=== PATIENT | female | born 1990 | race Caucasian/White ===

== ENCOUNTER 2017-08-11 14:03 | Emergency (ER) | payer SELFPAY ==
[2017-08-11] MEDS ORDERED: ALBUTEROL SULFATE 0.083% NEB 2.5 MG/3 ML AMPUL NEB ONE (14:19)
[2017-08-11] MEDS ORDERED: NORMAL SALINE 1000 ML 1,000 ML IV ONE (14:19)
[2017-08-11] MEDS ORDERED: METHYLPREDNISOLONE INJ 125 MG/2 ML SDV IV ONE (14:19)
--- NOTE | 2017-08-11 14:22 | ER Document Report ---
ED Medical Screen (RME) - General Chief Complaint: Breathing Difficulty Stated Complaint: BREATHING DIFFICULTY Time Seen by Provider: 08/11/17 14:16 Notes: 27-year-old female complaining of extreme shortness of breath starting this morning associated with chest tightness but no chest pain. Complains of productive cough but denies any fever. Denies any history of asthma or COPD although she does admit to smoking. States that she has had similar symptoms once before when she had the "bottom lobes of her lungs collapsed". Patient did not have to have surgery for this, was treated with steroids and oxygen at home. TRAVEL OUTSIDE OF THE [place] IN LAST 30 DAYS: No Past Medical History - General Information source: Patient - Social History Cigarette use (# per day): Yes Frequency of alcohol use: Rare Pulmonary Medical History: Reports: Hx Asthma Renal/ Medical History: Denies: Hx Peritoneal Dialysis Review of Systems - Review of Systems Respiratory: See HPI Physical Exam - Vital signs Vitals: Temp Pulse Resp Pulse Ox 98.6 F 111 H 28 H 91 L 08/11/17 14:09 08/11/17 14:09 08/11/17 14:09 08/11/17 14:09 Interpretation: Tachycardic, Hypoxic - Respiratory Respiratory status: Respiratory distress, Pursed lip breathing Chest status: Accessory muscle use, Prolonged expirations Breath sounds: Wheezing Course - Vital Signs Vital signs: Temp Pulse Resp BP Pulse Ox 98.6 F 111 H 28 H 91 L 08/11/17 14:09 08/11/17 14:09 08/11/17 14:09 08/11/17 14:09
[2017-08-11 14:50] LABS: ABSOLUTE BASOPHILS # (AUTO) 0.2 10^3/uL (0.0-0.2); ABSOLUTE EOSINOPHILS # (AUTO) 0.6 10^3/uL (0.0-0.6); ABSOLUTE LYMPHOCYTES (AUTO) 1.8 10^3/uL (0.5-4.7); ABSOLUTE MONOCYTES (AUTO) 0.5 10^3/uL (0.1-1.4); ABSOLUTE NEUT (AUTO) 11.5 10^3/uL (1.7-8.2); BASOPHILS % (AUTO) 1.2 % (0-2); EOSINOPHILS % (AUTO) 3.9 % (0-6); HEMATOCRIT 39.8 % (36.0-47.0); HEMOGLOBIN 13.4 g/dL (12.0-15.5); HGB HCT DIFFERENCE 0.4; LYMPHOCYTES % (AUTO) 12.3 % (13-45); MEAN CORPUSCULAR HEMOGLOBIN 26.7 pg (27.0-33.4); MEAN CORPUSCULAR HGB CONC 33.8 g/dL (32.0-36.0); MEAN CORPUSCULAR VOLUME 79 fl (80-97); MONOCYTES % (AUTO) 3.8 % (3-13); RED BLOOD COUNT 5.02 10^6/uL (3.72-5.28); RED CELL DISTRIBUTION WIDTH 16.1 % (11.5-14.0); SEGMENTED NEUTROPHILS % (AUTO) 78.8 % (42-78); WHITE BLOOD COUNT 14.6 10^3/uL (4.0-10.5)
[2017-08-11 15:06] LABS: ALANINE AMINOTRANSFERASE 27 U/L (9-52); ALBUMIN 4.5 g/dL (3.5-5.0); ALKALINE PHOSPHATASE 82 U/L (38-126); ANION GAP 13 (5-19); ASPARTATE AMINO TRANSFERASE 18 U/L (14-36); BILIRUBIN,DIRECT 0.4 mg/dL (0.0-0.4); BILIRUBIN,TOTAL 0.6 mg/dL (0.2-1.3); BLOOD UREA NITROGEN 10 mg/dL (7-20); CALCIUM 9.9 mg/dL (8.4-10.2); CARBON DIOXIDE 24 mmol/L (22-30); CHLORIDE 106 mmol/L (98-107); CREATININE RESULT 0.72 mg/dL (0.52-1.25); GLUCOSE 101 mg/dL (75-110); POTASSIUM 4.5 mmol/L (3.6-5.0); TOTAL PROTEIN 7.4 g/dL (6.3-8.2)
--- NOTE | 2017-08-11 15:18 | RADIOLOGY REPORT (SQ) ---
EXAM DESCRIPTION: CHEST SINGLE VIEW COMPLETED DATE/TIME: 08/11/2017 3:04 pm REASON FOR STUDY: SOB, cough COMPARISON: None. EXAM PARAMETERS: NUMBER OF VIEWS: One view. TECHNIQUE: Single frontal radiographic view of the chest acquired. RADIATION DOSE: NA LIMITATIONS: Large patient, portable technique FINDINGS: LUNGS AND PLEURA: No opacities, masses or pneumothorax. No pleural effusion. MEDIASTINUM AND HILAR STRUCTURES: No masses. Contour normal. HEART AND VASCULAR STRUCTURES: No cardiomegaly. Normal vasculature. BONES: No acute findings. HARDWARE: None in the chest. OTHER: No other significant finding. IMPRESSION: NO ACUTE RADIOGRAPHIC FINDING IN THE CHEST. TECHNICAL DOCUMENTATION: JOB ID: [id number]
[2017-08-11] MEDS ORDERED: IPRATROPIUM/ALBUTEROL 0.5-2.5 MG/3 ML AMPUL NEB ONE (15:58)
[2017-08-11] MEDS ORDERED: PREDNISONE 20 MG TABLET PO ONE (16:26)
[2017-08-11] MEDS ORDERED: ALBUTEROL SULFATE HFA (90 MCG/PUFF) 8 GM MDI (1 MDI/ER DISP) IH ONE (16:28)
[2017-08-11 16:50] VITALS: BP 120/83
--- NOTE | 2017-08-11 16:50 | ER Document Report ---
ED General - General Chief Complaint: Breathing Difficulty Stated Complaint: BREATHING DIFFICULTY Time Seen by Provider: 08/11/17 14:16 TRAVEL OUTSIDE OF THE [place] IN LAST 30 DAYS: No - HPI Patient complains to provider of: Short of breath Notes: Patient coming in for acute shortness of breath. Patient states happened before with collapsed lung sent home with steroids and oxygen. Patient states does not have any surgery patient does admit to smoking having cold-like symptoms cough runny nose. Patient denies any recent travel denies any hormone replacement patient denies fever chills nausea vomiting. Patient is resting comfortably upon my evaluation already received a nebulizer treatment stating that she feels much better. - Related Data Allergies/Adverse Reactions: No Known Allergies Allergy (Unverified 08/11/17 14:21) Past Medical History - General Information source: Patient - Social History Smoking Status: Current Every Day Smoker Cigarette use (# per day): Yes Frequency of alcohol use: Rare Family History: Reviewed & Not Pertinent Pulmonary Medical History: Reports: Hx Asthma Renal/ Medical History: Denies: Hx Peritoneal Dialysis Review of Systems - Review of Systems Constitutional: No symptoms reported EENT: No symptoms reported Cardiovascular: No symptoms reported Respiratory: Short of breath Gastrointestinal: No symptoms reported Genitourinary: No symptoms reported Female Genitourinary: No symptoms reported Musculoskeletal: No symptoms reported Skin: No symptoms reported Hematologic/Lymphatic: No symptoms reported Neurological/Psychological: No symptoms reported Physical Exam - Vital signs Vitals: Temp Pulse Resp Pulse Ox 98.6 F 111 H 28 H 91 L 08/11/17 14:09 08/11/17 14:09 08/11/17 14:09 08/11/17 14:09 Interpretation: Normal - General General appearance: Appears well, Alert - HEENT Head: Normocephalic, Atraumatic Eyes: Normal Pupils: PERRL - Respiratory Respiratory status: No respiratory distress Chest status: Nontender Breath sounds: Wheezing Chest palpation: Normal - Cardiovascular Rhythm: Regular Heart sounds: Normal auscultation Murmur: No - Abdominal Inspection: Normal Distension: No distension Bowel sounds: Normal Tenderness: Nontender Organomegaly: No organomegaly - Back Back: Normal, Nontender - Extremities General upper extremity: Normal inspection, Nontender, Normal color, Normal ROM , Normal temperature General lower extremity: Normal inspection, Nontender, Normal color, Normal ROM , Normal temperature, Normal weight bearing. No: Michael's sign - Neurological Neuro grossly intact: Yes Cognition: Normal Orientation: AAOx4 [place] Coma Scale Eye Opening: Spontaneous Iglesia Coma Scale Verbal: Oriented Iglesia Coma Scale Motor: Obeys Commands Iglesia Coma Scale Total: 15 Speech: Normal Motor strength normal: LUE, RUE, LLE, RLE Sensory: Normal - Psychological Associated symptoms: Normal affect, Normal mood - Skin Skin Temperature: Warm Skin Moisture: Dry Skin Color: Normal Course - Re-evaluation Re-evalutation: 08/11/17 18:32 Reexaminations showed resolution of wheezing. Patient was given prednisone. Laboratory studies x-ray does not show any critical findings. Patient will be discharged on follow-up primary care physicians. - Vital Signs Vital signs: Temp Pulse Resp BP Pulse Ox 98.6 F 111 H 21 H 120/83 92 08/11/17 14:09 08/11/17 14:09 08/11/17 16:36 08/11/17 16:36 08/11/17 16:36 - Laboratory Result Diagrams: 08/11/17 14:34 08/11/17 14:34 Laboratory results interpreted by me: 08/11/17 14:34 WBC 14.6 H MCV 79 L MCH 26.7 L RDW 16.1 H Seg Neutrophils % 78.8 H Lymphocytes % 12.3 L Absolute Neutrophils 11.5 H Discharge - Discharge Clinical Impression: Wheezing, Cigarette smoker Condition: Good Disposition: HOME, SELF-CARE Instructions: Bronchitis With Bronchospasm (Wheezing) ([facility]), Bronchodilators ( [facility]), Family Physicians / Practices, Stop Smoking ([facility]) Additional Instructions: Follow-up with your primary care physician. Return to the ER if symptoms worsen. Take medications as prescribed. Prescriptions: Prednisone [Deltasone] 60 mg PO DAILY #24 tablet Forms: Return to Work
== END 2017-08-11 16:53 | disposition home or self-care (01) ==
LOC: ER 14:03
DX: R06.2 Wheezing (principal); R06.02 Shortness of breath; F17.200 Nicotine dependence, unspecified, uncomplicated
CPT/HCPCS: 94640 ×2; 99285; 96361; 96374; 36415; 85025; 80053; 71010; J2930; J7512; J7030; J3490; J7620

== ENCOUNTER 2018-01-17 17:00 | Emergency (ER) | payer SELFPAY ==
[2018-01-17] MEDS ORDERED: ALBUTEROL SULFATE 0.083% NEB 2.5 MG/3 ML AMPUL NEB ONE (17:24)
[2018-01-17] MEDS ORDERED: IPRATROPIUM BROMIDE 0.02% NEB 0.5 MG/2.5 ML AMPUL NEB ONE (17:25)
[2018-01-17] MEDS ORDERED: PREDNISONE 20 MG TABLET PO ONE ×2 (17:25→17:49)
--- NOTE | 2018-01-17 17:27 | ER Document Report ---
ED Medical Screen (RME) - General Chief Complaint: Breathing Difficulty Stated Complaint: SHORTNESS OF BREATH Time Seen by Provider: 01/17/18 17:11 Notes: Patient presents for shortness of breath and wheezing. Patient states that she has an albuterol puffer she uses and has had to use approximately 30 puffs today. In triage patient's O2 saturation is approximately 93% and she is mildly tachycardic. She has been having upper respiratory congestion for the last 5 days but no recent fevers or otherwise no other illnesses. She has audible wheezing and prolonged end expiratory breath sounds in triage. Hour- long DuoNeb and steroids ordered. I have greeted and performed a rapid initial assessment of this patient. A comprehensive ED assessment and evaluation of the patient, analysis of test results and completion of the medical decision making process will be conducted by additional ED providers. PHYSICAL EXAMINATION: GENERAL: Well-appearing, well-nourished and in no acute distress. HEAD: Atraumatic, normocephalic. EYES: Pupils equal round extraocular movements intact, conjunctiva are normal. ENT: Nares patent NECK: Normal range of motion LUNGS: Wheezing with prolonged expiratory breath sounds with no crackles Musculoskeletal: Normal range of motion NEUROLOGICAL: Normal speech, normal gait. PSYCH: Normal mood, normal affect. SKIN: Warm, Dry, normal turgor, no rashes or lesions noted. TRAVEL OUTSIDE OF THE [place] IN LAST 30 DAYS: No - Related Data Allergies/Adverse Reactions: No Known Allergies Allergy (Verified 01/17/18 17:01) Past Medical History Pulmonary Medical History: Reports: Hx Asthma Renal/ Medical History: Denies: Hx Peritoneal Dialysis Physical Exam - Vital signs Vitals: Temp Pulse Resp BP Pulse Ox 97.7 F 108 H 22 H 155/94 H 93 01/17/18 17:04 01/17/18 17:04 01/17/18 17:04 01/17/18 17:04 01/17/18 17:04 Course - Vital Signs Vital signs: Temp Pulse Resp BP Pulse Ox 97.7 F 108 H 22 H 155/94 H 93 01/17/18 17:04 01/17/18 17:04 01/17/18 17:04 01/17/18 17:04 01/17/18 17:04
--- NOTE | 2018-01-17 19:18 | ER Document Report ---
ED General - General Chief Complaint: Breathing Difficulty Stated Complaint: SHORTNESS OF BREATH Time Seen by Provider: 01/17/18 17:11 Notes: Patient is a 27-year-old female with a past history of recurrent bronchospasms who presents with the same. Patient reports that she has had a viral upper respiratory infection over the past several days and that over the last 24 hours she has had progressively worsening shortness of breath, wheezing and cough. She states this feels very similar to the 2 prior occasions in which she has been diagnosed as having severe bronchospasms on one such occasion she required hospitalization with supplemental oxygen at time of discharge. She has never followed up with pulmonology for formal pulmonary function testings or further evaluation of the cause of this recurrent illness. She states that she has tried an inhaler at home without any improvement of her symptoms. Exertion seems to worsen her shortness of breath. She denies any hemoptysis, syncope, abdominal pain, nausea, vomiting or fever. She denies any pleuritic pain. No history of DVT or pulmonary embolus. TRAVEL OUTSIDE OF THE [place] IN LAST 30 DAYS: No - Related Data Allergies/Adverse Reactions: No Known Allergies Allergy (Verified 01/17/18 17:01) Past Medical History - General Information source: Patient - Social History Smoking Status: Former Smoker Frequency of alcohol use: None Drug Abuse: None Lives with: Family Family History: Reviewed & Not Pertinent Patient has suicidal ideation: No Patient has homicidal ideation: No Pulmonary Medical History: Reports: Hx Asthma Renal/ Medical History: Denies: Hx Peritoneal Dialysis Review of Systems - Review of Systems Notes: Constitutional: Negative for fever. HENT: Negative for sore throat. Eyes: Negative for visual changes. Cardiovascular: Negative for chest pain. Respiratory: Positive for shortness of breath. Gastrointestinal: Negative for abdominal pain, vomiting or diarrhea. Genitourinary: Negative for dysuria. Musculoskeletal: Negative for back pain. Skin: Negative for rash. Neurological: Negative for headaches, weakness or numbness. 10 point ROS negative except as marked above and in HPI. Physical Exam - Vital signs Vitals: Temp Pulse Resp BP Pulse Ox 97.7 F 108 H 22 H 155/94 H 93 01/17/18 17:04 01/17/18 17:04 01/17/18 17:04 01/17/18 17:04 01/17/18 17:04 Interpretation: Tachycardic, Tachypneic Notes: PHYSICAL EXAMINATION: GENERAL: Well-appearing, well-nourished and in no acute distress. HEAD: Atraumatic, normocephalic. EYES: Pupils equal round and reactive to light, extraocular movements intact, sclera anicteric, conjunctiva are normal. ENT: nares patent, oropharynx clear without exudates. Moist mucous membranes. NECK: Normal range of motion, supple without lymphadenopathy LUNGS: Mild tachypnea, mildly diminished air movement throughout, no wheezing or rhonchi. HEART: Regular tachycardia without murmurs ABDOMEN: Soft, nontender, normoactive bowel sounds. No guarding, no rebound. No masses appreciated. EXTREMITIES: Normal range of motion, no pitting or edema. No cyanosis. NEUROLOGICAL: No focal neurological deficits. Moves all extremities spontaneously and on command. PSYCH: Normal mood, normal affect. SKIN: Warm, Dry, normal turgor, no rashes or lesions noted. Course - Re-evaluation Re-evalutation: 01/17/18 19:15 Patient presents with 12 hours of worsening shortness of breath, chest tightness , and near syncope. Patient reports two prior episodes of the same but was told she did not have a formal diagnosis of asthma. On my assessment, patient has moderately tight air movement but no wheezing although she has already had several breathing treatments prior to my assessment. However, despite the lack of active wheezing the patient does persist with moderate tachypnea and borderline hypoxia resting between 93-92% and some degree of obvious labored breathing. Patient reports that she was hospitalized on one prior occasion for the same, had a CT of her chest which is normal, and eventually was discharged home on steroids as well as home oxygen therapy. Will proceed with labs, EKG, continuous cardiac monitoring, hold on additional breathing treatments at this time as the patient is markedly tachycardic and does not appear to have any ongoing wheezes and reassess the patient. 01/17/18 21:29 D-dimer is negative. Chest x-ray is read as clear. BNP and troponin are likewise normal. Patient has had marked improvement of her work of breathing currently saturating 96-97% on room air and in no distress. She remains moderately tachycardic which is anticipated given that she has received 20 mg of albuterol here in the emergency department. She overall states she feels markedly improved. I have encouraged her to follow-up with pulmonology and provided her referral to Dr. Ybarra. At this time will discharge with return precautions and follow-up recommendations. Verbal discharge instructions given a the bedside and opportunity for questions given. Medication warnings reviewed. Patient is in agreement with this plan and has verbalized understanding of return precautions and the need for primary care follow-up in the next 24-72 hours. - Vital Signs Vital signs: Temp Pulse Resp BP Pulse Ox 97.8 F 108 H 16 140/73 H 97 01/17/18 21:52 01/17/18 17:04 01/17/18 21:52 01/17/18 21:52 01/17/18 21:52 - Laboratory Result Diagrams: 01/17/18 19:55 01/17/18 19:55 Laboratory results interpreted by me: 01/17/18 01/17/18 19:55 19:55 WBC 16.5 H MCH 26.5 L RDW 15.3 H Seg Neutrophils % 89.1 H Lymphocytes % 6.9 L Monocytes % 2.6 L Absolute Neutrophils 14.7 H Carbon Dioxide 20 L Glucose 113 H - Diagnostic Test Radiology reviewed: Image reviewed, Reports reviewed Radiology results interpreted by me: 01/17/18 19:18 Chest x-ray: No acute infiltrate or pneumothorax - EKG Interpretation by Me Additional EKG results interpreted by me: 01/17/18 21:30 Sinus tachycardia. Rate 123. No ST elevations or depressions. QTC is 447. Discharge - Discharge Clinical Impression: Reactive airway disease that is not asthma, Shortness of breath, Tachycardia Condition: Good Disposition: HOME, SELF-CARE Additional Instructions: He was seen for shortness of breath today that appears to be some form of reactive airway disease. Your labs and chest x-ray do not suggest a blood clot in your lung, cardiac failure, pneumonia, or collapsed lung. Your symptoms improved with treatment here in the emergency department. However, it is very important that you return to the emergency department immediately if you began to have worsening difficulty breathing that does not respond to your normal home breathing treatments. You are also being sent home on a five-day course of steroids that you should start taking tomorrow. Please also follow closely with your primary care physician. you should also return to emergency department if you develop fever greater than 101, persistent cough, persistent vomiting, pass out, or any other symptoms that are concerning to you. Prescriptions: Albuterol Sulfate [Proair HFA Inhalation Aerosol 8.5 gm MDI] 2 puff IH Q4H PRN # 1 mdi PRN Reason: Prednisone [Deltasone 20 mg Tablet] 3 tab PO DAILY 5 Days tablet Referrals: MANINDER YBARRA MD [ACTIVE STAFF] - Follow up as needed
--- NOTE | 2018-01-17 19:51 | RADIOLOGY REPORT (SQ) ---
EXAM DESCRIPTION: CHEST SINGLE VIEW COMPLETED DATE/TIME: 01/17/2018 7:06 pm REASON FOR STUDY: sob COMPARISON: Chest x-ray 08/11/2017. EXAM PARAMETERS: NUMBER OF VIEWS: One view. TECHNIQUE: Single frontal radiographic view of the chest acquired. RADIATION DOSE: NA LIMITATIONS: None. FINDINGS: LUNGS AND PLEURA: No consolidation, pneumothorax or pleural effusion. MEDIASTINUM AND HILAR STRUCTURES: No masses. Contour normal. HEART AND VASCULAR STRUCTURES: Heart normal in size. Normal vasculature. BONES: No acute findings. HARDWARE: None in the chest. IMPRESSION: No acute radiographic finding in the chest. TECHNICAL DOCUMENTATION: JOB ID: [id number] 2010 [employer]- All Rights Reserved Reading location - IP/workstation name: [email or web address]
[2018-01-17 20:06] LABS: ABSOLUTE BASOPHILS # (AUTO) 0.1 10^3/uL (0.0-0.2); ABSOLUTE EOSINOPHILS # (AUTO) 0.2 10^3/uL (0.0-0.6); ABSOLUTE LYMPHOCYTES (AUTO) 1.1 10^3/uL (0.5-4.7); ABSOLUTE MONOCYTES (AUTO) 0.4 10^3/uL (0.1-1.4); ABSOLUTE NEUT (AUTO) 14.7 10^3/uL (1.7-8.2); BASOPHILS % (AUTO) 0.4 % (0-2); HEMOGLOBIN 12.6 g/dL (12.0-15.5); LYMPHOCYTES % (AUTO) 6.9 % (13-45); MEAN CORPUSCULAR HEMOGLOBIN 26.5 pg (27.0-33.4); MEAN CORPUSCULAR HGB CONC 33.1 g/dL (32.0-36.0); MEAN CORPUSCULAR VOLUME 80 fl (80-97); MONOCYTES % (AUTO) 2.6 % (3-13); PLATELET COUNT 296 10^3/uL (150-450); RED BLOOD COUNT 4.74 10^6/uL (3.72-5.28); RED CELL DISTRIBUTION WIDTH 15.3 % (11.5-14.0); SEGMENTED NEUTROPHILS % (AUTO) 89.1 % (42-78); TOTAL CELLS COUNTED % (AUTO) 100 %; WHITE BLOOD COUNT 16.5 10^3/uL (4.0-10.5)
[2018-01-17] MEDS ORDERED: NORMAL SALINE 1000 ML 1,000 ML IV ONE (20:10)
--- NOTE | 2018-01-17 20:17 | EKG REPORT ---
SEVERITY:- BORDERLINE ECG - SINUS TACHYCARDIA PROBABLE LEFT ATRIAL ABNORMALITY : Confirmed by: Warren Rodriguez MD 17-Jan-2018 20:16:37
[2018-01-17 20:22] LABS: ANION GAP 15 (5-19); BLOOD UREA NITROGEN 11 mg/dL (7-20); CALCIUM 9.7 mg/dL (8.4-10.2); CARBON DIOXIDE 20 mmol/L (22-30); CHLORIDE 107 mmol/L (98-107); GLUCOSE 113 mg/dL (75-110); POTASSIUM 4.1 mmol/L (3.6-5.0); SODIUM 141.8 mmol/L (137-145)
[2018-01-17 20:34] LABS: NT PRO BNP 25 pg/mL (<125)
[2018-01-17 20:40] LABS: TROPONIN I < 0.012 ng/mL
[2018-01-17 21:56] VITALS: BP 140/73
== END 2018-01-17 22:08 | disposition home or self-care (01) ==
LOC: ER 17:00
DX: J45.998 Other asthma (principal); R06.02 Shortness of breath; R00.0 Tachycardia, unspecified; R07.89 Other chest pain; R55 Syncope and collapse
CPT/HCPCS: 93005; 94640 ×2; 99285; 96360; 36415; 85025; 80048; 84484; 85379; 83880; 71045; 93010; J7512; J7030; J3490

== ENCOUNTER → 2019-09-12 | Outpatient (CLI) | payer BC ==
--- NOTE | 2019-09-12 20:06 | RADIOLOGY REPORT (SQ) ---
EXAM DESCRIPTION: CHEST 2 VIEWS COMPLETED DATE/TIME: 09/12/2019 6:03 pm REASON FOR STUDY: R06.2 WHEEZING R06.2 WHEEZING COMPARISON: None. NUMBER OF VIEWS: Two view. TECHNIQUE: Frontal and lateral radiographic views of the chest acquired. LIMITATIONS: None. FINDINGS: LUNGS AND PLEURA: Peribronchial cuffing and interstitial changes. No consolidation, effus ion, or pneumothorax. MEDIASTINUM AND HILAR STRUCTURES: No masses. No contour abnormalities. HEART AND VASCULAR STRUCTURES: Heart normal in size and contour. No evidence for failure. BONES: No acute findings. HARDWARE: None in the chest. OTHER: No other significant finding. IMPRESSION: REACTIVE AIRWAY DISEASE VERSUS VIRAL SYNDROME. NO CONSOLIDATION. TECHNICAL DOCUMENTATION: JOB ID: [id number] [id number] 2010 [employer]- All Rights Reserved Reading location - IP/workstation name: [email or web address]
== END ==
LOC: RAD 17:43
PROVIDERS: ATTEND Nurse Practitioner Acute Care
DX: R06.2 Wheezing (principal)
CPT/HCPCS: 71046